=== PATIENT | female | born 1995 | race Caucasian/White ===

== ENCOUNTER 2021-07-02 12:50 | Emergency (ER) | payer MEDICAID ==
[~2021-07-02] VITALS: Ht 162.6 cm; Wt 88.1 kg
[2021-07-02 12:59] VITALS: BP 112/95
--- NOTE | 2021-07-02 14:24 | NUR ---
Patient ambulated with steady gait to bed 4
--- NOTE | 2021-07-02 15:25 | NUR ---
25 YEARS OLD FEMALE PRESENTS TO ER C/O RLQ PAIN FOR 1 MONTH DENIES NAUSEA VOMITING, PAIN RADIATE TO LLQ.
[2021-07-02 15:50] LABS: BASOPHILS % (AUTO) 0.5 % (0.0-2.0); EOSINOPHILS # (AUTO) 0.2 K/uL (0-0.4); EOSINOPHILS % (AUTO) 2.2 % (0.0-4.0); HEMOGLOBIN 12.8 g/dL (12.0-16.0); LYMPHOCYTES # (AUTO) 2.7 K/uL (2.5-16.5); LYMPHOCYTES % (AUTO) 32.6 % (20.5-51.1); MEAN CORPUSCULAR HEMOGLOBIN 28 pg (27-31); MEAN CORPUSCULAR HGB CONC 34 g/dL (33-37); MEAN CORPUSCULAR VOLUME 82.1 fL (80-94); MONOCYTES # (AUTO) 0.6 K/uL (0.8-1.0); MONOCYTES % (AUTO) 7.1 % (1.7-9.3); NEUTROPHILS # (AUTO) 4.8 K/uL (1.8-7.7); NEUTROPHILS % (AUTO) 57.6 % (42.2-75.2); PLATELET COUNT (AUTO) 317 K/uL (140-450); RED BLOOD CELL COUNT(AUTO) 4.63 MIL/uL (4.20-5.40); RED CELL DISTRIBUTION WIDTH 14.1 % (11.6-13.7); WHITE BLOOD COUNT (AUTO) 8.3 K/uL (4.8-10.8)
[2021-07-02 16:16] LABS: ALBUMIN 3.7 g/dL (3.4-5.0); ANION GAP 11.3 (8-16); CARBON DIOXIDE 26.3 mmol/L (21-32); CREATININE 0.6 mg/dL (0.6-1.3); POTASSIUM 3.6 mmol/L (3.5-5.1); TOTAL BILIRUBIN 0.2 mg/dL (0.0-1.0)
[2021-07-02] MEDS ORDERED: IBUP-2213 PO (17:49)
[2021-07-02 18:17] VITALS: BP 122/70
--- NOTE | 2021-07-02 18:19 | NUR ---
PATIENT CONDITION STABLE D/C HOME WITH INSTRUCTIONS AFTER CARE REVIEWED UNDERSTOOD LEFT ER VIA SELF AMBULATORY WITH STEADY GAIT.
== END 2021-07-02 18:19 | disposition home or self-care (01) ==
LOC: MED 12:50
DX: R10.9 Unspecified abdominal pain (principal); R03.0 Elevated blood-pressure reading, without diagnosis of hypertension; Z79.899 Other long term (current) drug therapy; Z90.49 Acquired absence of other specified parts of digestive tract
CPT/HCPCS: 36415; 76856; 80053; 81002; 81025; 83690; 85025; 87210; 87491; 93976; 99284; Q0092

== ENCOUNTER 2023-05-12 11:26 | Emergency (ER) | payer BC, MEDICAID ==
[~2023-05-12] VITALS: Ht 162.6 cm; Wt 81.2 kg
[~2023-05-12 11:26] MED LIST: IBUP-2213 PO
[2023-05-12 11:42] VITALS: BP 108/56; PULSE 81; RESP 20; TEMP 97.8; O2SAT 99
== END 2023-05-12 14:00 | disposition left against medical advice (07) ==
LOC: MED 11:26
DX: R10.13 Epigastric pain (principal); R51.9 Headache, unspecified; Z53.21 Procedure and treatment not carried out due to patient leaving prior to being seen by health care provider
CPT/HCPCS: 99281